=== PATIENT | female | born 1975 | race Caucasian/White ===

== ENCOUNTER 2017-09-26 11:28 | Inpatient (IN) | payer OTHER ==
[~2017-09-26] VITALS: Ht 167.6 cm; Wt 100.0 kg
[2017-09-26 13:01] LABS: BASOPHIL % 0.3 % (0-2); PLATELET COUNT 295 x10^3mcL (130-400); RED CELL DISTRIBUTION WIDTH 13.4 % (11.5-14.5)
[2017-09-26 13:23] LABS: CALCIUM 8.8 mg/dL (8.5-10.1); CARBON DIOXIDE 26.3 mmol/L (21-32); CHLORIDE SERUM 99 mmol/L (98-107); CREATININE SERUM 0.8 mg/dL (0.6-1.0); GFR1 > 60 mL/min; GLUCOSE SERUM 314 mg/dL (74-106); POTASSIUM SERUM 3.8 mmol/L (3.5-5.1); SODIUM SERUM 137 mmol/L (136-145)
[2017-09-26 13:28] LABS: ALKALINE PHOSPHATASE 90 U/L (46-116); ALT/SGPT 28 U/L (14-59); AST/SGOT 19 U/L (15-37); BILIRUBIN TOTAL 0.5 mg/dL (0.20-1.00); HDL CHOLESTEROL 42 mg/dL (40-60); MAGNESIUM 1.9 mg/dL (1.8-2.4); TOTAL PROTEIN, SERUM 8.1 g/dL (6.4-8.2)
[2017-09-26 14:00] LABS: CHOLESTEROL 251 mg/dL (<200)
[2017-09-26 19:48] VITALS: BP 148/86
[2017-09-26 19:54] LABS: T3 TOTAL 0.88 ng/mL
[2017-09-26 20:51] LABS: FREE T4 1.22 ng/dL (0.76-1.46); FREE THYROXINE INDEX 2.8 ug/dL (1.4-4.5); T4(THYROXINE) 7.9 ug/dL (4.7-13.3)
[2017-09-27 06:21] VITALS: BP 124/64
[2017-09-27 06:23] LABS: BASOPHIL % 0.4 % (0-2); PLATELET COUNT 291 x10^3mcL (130-400); RED CELL DISTRIBUTION WIDTH 13.6 % (11.5-14.5)
[2017-09-27 06:59] LABS: CALCIUM 8.5 mg/dL (8.5-10.1); CHLORIDE SERUM 104 mmol/L (98-107); CREATININE SERUM 0.7 mg/dL (0.6-1.0); GFR1 > 60 mL/min; GLUCOSE SERUM 244 mg/dL (74-106); POTASSIUM SERUM 3.6 mmol/L (3.5-5.1); SODIUM SERUM 140 mmol/L (136-145)
[2017-09-27 08:00] VITALS: BP 129/74
[2017-09-27 08:52] VITALS: BP 124/64
[2017-09-27 08:55] VITALS: BP 122/65
[2017-09-27 11:30] LABS: microscopic required? NO
[2017-09-27 11:38] LABS: urine erythrocyte NEGATIVE (NEGATIVE)
[2017-09-27] MEDS ORDERED: SERTRALINE50 M1 PO (12:19)
[2017-09-27 13:11] VITALS: BP 153/91
[2017-09-27] MEDS ORDERED: MECLIZINE HCL12.5 MG PO (13:50)
[2017-09-27] MEDS ORDERED: ZOFRAN8 MG PO (13:51)
[2017-09-27] MEDS ORDERED: METFORMIN500 M1 GT (13:52)
[2017-09-27] MEDS ORDERED: COMPAZINE5 M1 PO (15:45)
== END 2017-09-27 16:27 | disposition home or self-care (01) | DRG 48 ==
LOC: ED 11:28 → MU 18:52 → DU 18:52 → MU 09-27 10:18
PROVIDERS: Emergency Medicine; Family Medicine
DX: G90.8 Other disorders of autonomic nervous system (principal); I42.0 Dilated cardiomyopathy; H81.09 Meniere's disease, unspecified ear; E11.65 Type 2 diabetes mellitus with hyperglycemia; I10 Essential (primary) hypertension; E66.9 Obesity, unspecified; F41.1 Generalized anxiety disorder; E78.5 Hyperlipidemia, unspecified; E78.00 Pure hypercholesterolemia, unspecified; R27.0 Ataxia, unspecified; R81 Glycosuria; Z68.35 Body mass index [BMI] 35.0-35.9, adult; Z56.0 Unemployment, unspecified
CPT/HCPCS: 82962; 83880; 84439; J1200; J2060; J2405; J7030; J8597; Q0092; Q0164; Q9967

== ENCOUNTER 2018-05-14 19:17 | Emergency (ER) | payer OTHER ==
[~2018-05-14] VITALS: Ht 167.6 cm; Wt 102.5 kg
[~2018-05-14 19:17] MED LIST: COMPAZINE5 M1 PO; MECLIZINE HCL12.5 MG PO; METFORMIN500 M1 GT; SERTRALINE50 M1 PO; ZOFRAN8 MG PO
[2018-05-14 20:08] VITALS: Ht 167.6 cm; Wt 102.5 kg
[2018-05-14 21:33] VITALS: BP 142/87
== END 2018-05-14 21:33 | disposition home or self-care (01) ==
LOC: ED 19:17
DX: M70.62 Trochanteric bursitis, left hip (principal); G47.00 Insomnia, unspecified; E11.9 Type 2 diabetes mellitus without complications; Y93.89 Activity, other specified

== ENCOUNTER 2019-01-18 09:19 | Emergency (ER) | payer OTHER ==
[~2019-01-18] VITALS: Ht 167.6 cm; Wt 101.6 kg
[2019-01-18 09:23] VITALS: Ht 167.6 cm; Wt 101.6 kg
[2019-01-18 11:11] VITALS: BP 145/76
== END 2019-01-18 11:11 | disposition home or self-care (01) ==
LOC: ED 09:19
DX: S13.9XXA Sprain of joints and ligaments of unspecified parts of neck, initial encounter (principal); S06.0X9A Concussion with loss of consciousness of unspecified duration, initial encounter; E11.65 Type 2 diabetes mellitus with hyperglycemia; W22.8XXA Striking against or struck by other objects, initial encounter; Y93.89 Activity, other specified; Y92.89 Other specified places as the place of occurrence of the external cause; Y99.8 Other external cause status
CPT/HCPCS: 82962; J1885